=== PATIENT | female | born 1990 | race Hispanic/Latino ===

== ENCOUNTER 2020-07-24 12:28 | Emergency (ER) | payer MEDICAID, OTHER ==
[2020-07-24 13:36] LABS: BASOPHILS % (AUTO) 0.5 % (0.0-5.0); EOSINOPHILS % (AUTO) 2.4 % (0.0-8.0); HEMATOCRIT 39.3 % (36-48); LYMPHOCYTES % (AUTO) 27.2 % (21.0-51.0); MEAN CORPUSCULAR HEMOGLOBIN 27.6 pg (27.0-33.0); MEAN CORPUSCULAR HGB CONC 33.1 g/dL (32.0-36.0); MEAN CORPUSCULAR VOLUME 83.4 fL (79-99); NEUTROPHILS % (AUTO) 61.6 % (40.0-77.0); PLATELET COUNT (AUTO) 197 K/uL (130-400); RED BLOOD CELL COUNT(AUTO) 4.71 MIL/uL (4.00-5.50); RED CELL DISTRIBUTION WIDTH 12.5 % (11.0-15.5); WHITE BLOOD COUNT (AUTO) 5.7 K/uL (4.8-10.8)
[2020-07-24 13:42] LABS: APPEARANCE,URINE Clear (CLEAR); BILIRUBIN,URINE Negative (NEGATIVE); COLOR,URINE Yellow (YELLOW); GLUCOSE, URINE (UA) Negative (NEGATIVE); KETONES,URINE Negative (NEGATIVE); LEUKOCYTE ESTERASE ,URINE Moderate (NEGATIVE); NITRATE,URINE Negative (NEGATIVE); OCCULT BLOOD,URINE Negative (NEGATIVE); PROTEIN,URINE Negative (NEGATIVE); UROBILINOGEN,URINE 0.2 mg/dL (0.2-1.0)
[2020-07-24 13:43] LABS: HCG,QUAL RESULT NEGATIVE (NEGATIVE)
[2020-07-24 13:45] LABS: CREATININE 0.8 mg/dL (0.5-1.5); POTASSIUM 4.4 mmol/L (3.5-5.1)
[2020-07-24 13:49] LABS: ALBUMIN 3.7 g/dL (3.5-5.0); BILIRUBIN,TOTAL 0.4 mg/dL (0.2-1.0); TOTAL PROTEIN, SERUM 7.4 g/dL (6.0-8.3)
[2020-07-24] MEDS ORDERED: CEFTRIAXONE SODIUM 1 GM ONE (13:56)
[2020-07-24] MEDS ORDERED: LIDOCAINE HCL-MPF 1% 2ML VIAL ONE (13:56)
[2020-07-24] MEDS ORDERED: AZITHROMYCIN 250 MG TABLET PO ONE (13:57)
[2020-07-24 14:07] LABS: BACTERIA,URINE None Seen /HPF (None Seen); RBC,URINE None Seen /HPF (0-1); TRICHOMONAS,URINE Few /LPF (None Seen)
[2020-07-27 12:12] LABS: CHLAMYDIA DNA N.A.AMPLIFY Negative (Negative)
== END 2020-07-24 15:44 | disposition home or self-care (01) ==
LOC: EDH 12:28
DX: N73.9 Female pelvic inflammatory disease, unspecified (principal)
CPT/HCPCS: 36415; 80053; 81001; 81025; 83690; 85025; 87088; 87210; 87486; 87797; 96372; 99284; J0696; J3490

== ENCOUNTER 2020-10-06 23:28 | Emergency (ER) | payer OTHER ==
[2020-10-07] MEDS ORDERED: OCTYL 2-CYANOACRYLATE 1 EACH TP ONE (00:07)
[2020-10-07] MEDS ORDERED: IBUPROFEN 800 MG TAB ONE (00:08)
[2020-10-07] MEDS ORDERED: TETANUS/DIPHTHERIA TOXOID [ADULT] 0.5 ML VIAL IM ONE (00:09)
== END 2020-10-07 00:31 | disposition home or self-care (01) ==
LOC: EDH 23:28
DX: S61.112A Laceration without foreign body of left thumb with damage to nail, initial encounter (principal); X58.XXXA Exposure to other specified factors, initial encounter; Y93.89 Activity, other specified; Y92.89 Other specified places as the place of occurrence of the external cause; Y99.8 Other external cause status
CPT/HCPCS: 90471; 90714